=== PATIENT | female | born 1980 | race Caucasian/White ===

== ENCOUNTER 2021-02-26 10:50 | Emergency (ER) | payer BC, SELFPAY ==
--- NOTE | ~2021-02-26 | XR_ITS ---
EXAMINATION: XR ankle LT min 3V DATE: 02/26/2021 11:29 INDICATION: Medial and lateral left ankle pain post fall TECHNIQUE: Anteroposterior, oblique, mortise, and lateral views of the left ankle were obtained. COMPARISON: Left foot radiographs dated 03/04/2014 FINDINGS: Couple millimeter distraction of a small avulsion fracture at the tip of the lateral malleolus with p rominent overlying soft tissue swelling. There is an irregular contour along the lateral margin of th e talar dome with underlying lucency which could represent an additional minimally displaced fracture or more chronic osteochondral lesion. Alignment is otherwise normal. No other fractures identified. Joint spaces are normal. Small plantar calcaneal spur. No ankle joint effusion. IMPRESSION: 1. Minimal distraction of a small avulsion fracture at the tip of the lateral malleolus. 2. Suggestion of an additional small minimally displaced intra-articular fracture along the lateral r im of the talar dome with differential including more chronic osteochondral lesion. Reviewed, dictated and finalized at location A. IMPRESSION: 1. Minimal distraction of a small avulsion fracture at the tip of the lateral m alleolus. 2. Suggestion of an additional small minimally displaced intra-articular fractu re along the lateral rim of the talar dome with differential including more chr onic osteochondral lesion.
[2021-02-26 10:56] VITALS: BP 116/73; PULSE 87; RESP 16; TEMP 36.7; O2SAT 98
--- NOTE | 2021-02-26 12:00 | ED.GENADULT ---
HPI - General Adult General Chief complaint: Extremity Injury, Lower Stated complaint: L ANKLE INJURY Time Seen by Provider: 02/26/21 10:52 Source: patient, family and RN notes reviewed Mode of arrival: ambulatory Limitations: no limitations History of Present Illness HPI narrative: Patient is a 40-year-old female who presents to emergency department for evaluation of left ankle pain after stepping down off a tractor yesterday rolling the ankle patient notes aching pain with bruising and swelling throughout the ankle joint worse at the lateral aspect patient denies other injuries or complaints has had difficulty with bearing weight patient presents per private vehicle with family Related Data Allergies Allergy/AdvReac Type Severity Reaction Status Date / Time amoxicillin Allergy Unknown Unknown Verified 02/26/21 11:03 meperidine [From Demerol] AdvReac Nausea Verified 02/26/21 11:03 Review of Systems Review of Systems: All systems reviewed & are unremarkable except as noted in HPI and below PMFSH Family History Family History (Updated 04/12/16 @ 23:21 by DOCTOR UNKNOWN) Mother Depression Patient's mother is in good health Father Patient's father is in good health Family history of alcoholism Family history of emphysema Sibling Patient's sister is in good health Patient's brother is in good health Grandparent Cerebrovascular accident Other Family history of eczema Social History Social History (Updated 02/26/21 @ 12:03 by Sky Wetzel PA-C) Smoking status: Current every day smoker Alcohol intake: current Exam Narrative: Exam Narrative: GENERAL: Well-appearing, well-nourished, and in no acute distress. HEAD: Normocephalic, atraumatic. EYES: PERRLA and EOMI. ENT: Nares clear, no rhinorrhea or epistaxis. Mucous membranes moist. CHEST: Clear to auscultation. No respiratory distress. No wheezes rales or rhonchi HEART: Regular rate and rhythm. No murmur heard. Normal peripheral pulses. EXTREMITIES: Bruising swelling and tenderness of the left ankle joint with the worst tenderness laterally SKIN: Warm, dry, no rash. NEURO: No focal deficits. Alert and oriented x3. Neurovascularly intact PSYCH: Normal mood and affect. Course Course Emergency Course: Patient in the room at this time aware of case findings treatment plan and diagnosis agreeing to follow-up as instructed with orthopedics will be placed in a short leg splint with crutches nonweightbearing Vital Signs Vital signs: Vital Signs Temperature 98.1 F 02/26/21 10:56 Pulse Rate 87 02/26/21 10:56 Respiratory Rate 16 02/26/21 10:56 Blood Pressure 116/73 02/26/21 10:56 Pulse Oximetry 98 02/26/21 10:56 Temperature 98.1 F 02/26/21 10:56 Pulse Rate 87 02/26/21 10:56 Respiratory Rate 16 02/26/21 10:56 Blood Pressure 116/73 02/26/21 10:56 Pulse Oximetry 98 02/26/21 10:56 Procedures Orthopedic Splinting/Casting Injury #1: Splinting/Casting Date: 02/26/21 Splinting/Casting Time: 12:03 Side: left Lower Extremity Injury Location: ankle Splint: customized in ED OCL: short leg Pre-Procedure Neuro Vascular Exam: normal Post-Procedure Neuro Vascular Exam: normal Other Orthopedic Equipment: crutches Medical Decision Making MDM Narrative Medical decision making narrative: Patients injury or pain is consistent with musculoskeletal etiology. No signs of neurological or vascular compromise on exam. Compartments and tisues are soft without signs of compartment syndrome. Pain is felt appropriate for further evaluation on an outpatient basis. Vital Signs Vital Signs: Vital Signs Temperature 98.1 F 02/26/21 10:56 Pulse Rate 87 02/26/21 10:56 Respiratory Rate 16 02/26/21 10:56 Blood Pressure 116/73 02/26/21 10:56 Pulse Oximetry 98 02/26/21 10:56 Temperature 98.1 F 02/26/21 10:56 Pulse Rate 87 02/26/21 10:56 Respiratory Rate 16
[2021-02-26] MEDS: HYDROcodone/acetaminophen (*CRX) 5-325 MG TABLET 1 TAB PO (12:27)
[2021-02-26 13:01] VITALS: BP 112/64; PULSE 86; RESP 16; O2SAT 99
== END 2021-02-26 13:00 | disposition home or self-care (01) ==
PROVIDERS: Emergency Provider Emergency Medicine
DX: S82.62XA Displaced fracture of lateral malleolus of left fibula, initial encounter for closed fracture (principal); F17.200 Nicotine dependence, unspecified, uncomplicated; X50.9XXA Other and unspecified overexertion or strenuous movements or postures, initial encounter
CPT/HCPCS: 29515; 73610; 99284; A9270